=== PATIENT | male | born 1950 | race Caucasian/White ===

== ENCOUNTER → 2017-10-07 | Outpatient (CLI) | payer MEDICARE ==
[~2017-10-07] MED LIST: ALBU90OI6 INH; AMOCLA500 PO; BUDE6HFA INH; IBUP800 PO; LISI20 PO
== END | disposition home or self-care (01) ==
LOC: LAB SHORT 07:31 → PLD 07:31
DX: L82.1 Other seborrheic keratosis (principal)
CPT/HCPCS: 88305

== ENCOUNTER 2021-06-18 08:27 | Day surgery (SDC) | payer MEDICARE ==
[~2021-06-18] VITALS: Ht 182.9 cm; Wt 97.2 kg
[~2021-06-18 08:27] MED LIST changes: +Avapro300 MG PO; +HYDROCHLOROTH12.5 MG PO; +PRAVASTATIN SOD40 MG PO
[2021-06-18] MEDS ORDERED: IBUP200 PO (09:56)
--- NOTE | 2021-06-18 10:47 | NUR ---
06/18/21 1047 Kadie Cuba VERIFIED CORRECT PT, PROCEEDURE, SITE AND ALLERIGIES. PT ELECTED TO PROCEED. VERSED 2MG GIVEN IV. VS STABLE THROUGHTOUT. PT TOLERATED WELL
== END 2021-06-18 11:42 | disposition home or self-care (01) ==
LOC: ORSCSDS 08:27
PROVIDERS: Orthopaedic Surgery
PROC: 01N54ZZ Release Median Nerve, Percutaneous Endoscopic Approach (ICD-10-PCS; principal; 2021-06-18 10:30)
DX: G56.03 Carpal tunnel syndrome, bilateral upper limbs (principal); J44.9 Chronic obstructive pulmonary disease, unspecified; I10 Essential (primary) hypertension; E78.5 Hyperlipidemia, unspecified; R01.1 Cardiac murmur, unspecified; Z79.899 Other long term (current) drug therapy
CPT/HCPCS: 82947; J1885; J2250

== ENCOUNTER → 2022-01-15 | Outpatient (CLI) | payer MEDICARE ==
[~2022-01-15] MED LIST changes: +IBUP200 PO
[2022-01-15 10:37] LABS: BASOPHILS ABSOLUTE AUTO 0.09 K/mm3 (0.00-0.23); BASOPHILS PERCENT AUTO 1 % (0-2); EOSINOPHILS ABSOLUTE AUTO 0.52 K/mm3 (0.00-0.68); EOSINOPHILS PERCENT AUTO 5 % (0-6); Hematocrit 46.4 % (37.0-53.0); Hemoglobin 15.9 g/dL (13.5-17.5); IMMATURE GRAN ABSOLUTE AUTO 0.03 K/mm3 (0.00-0.10); IMMATURE GRAN PERCENT AUTO 0 % (0-1); LYMPHOCYTES ABSOLUTE AUTO 1.64 K/mm3 (0.84-5.20); LYMPHOCYTES PERCENT AUTO 16 % (21-46); MONOCYTES PERCENT AUTO 9 % (4-13); Mean Corpuscular HGB 29.4 pg (26.0-34.0); Mean Corpuscular HGB Conc 34.3 g/dL (31.5-36.5); Mean Corpuscular Volume 86 fL (80-100); Mean Platelet Volume 11.9 fL (9.1-12.4); NEUTROPHILS ABSOLUTE AUTO 6.81 K/mm3 (1.96-9.15); NEUTROPHILS PERCENT AUTO 68 % (41-73); Platelet Count 218 K/mm3 (150-400); RDW Coefficient Variation 13.8 % (11.7-14.2); RDW Standard Deviation 42.6 fL (35.1-46.3); White Blood Cell Count 9.99 K/mm3 (4.00-11.30)
[2022-01-15 11:04] LABS: Albumin, Blood 4.2 g/dL (3.4-5.0); Albumin/Globulin Ratio 1.1 (0.8-1.8); Bilirubin, Total 0.5 mg/dL (0.1-1.0); Calcium, Blood 9.2 mg/dL (8.5-10.1); Creatinine, Blood 0.96 mg/dL (0.60-1.20); Globulin, Blood 3.8 g/dL (2.2-4.0); Potassium, Blood 4.5 mmol/L (3.5-5.5)
== END ==
LOC: LAB 10:33 → LAB SHORT 10:33
PROVIDERS: Family Medicine
DX: R10.30 Lower abdominal pain, unspecified (principal)
CPT/HCPCS: 80053; 85025

== ENCOUNTER 2022-06-24 06:31 | Day surgery (SDC) | payer MEDICARE ==
[~2022-06-24] VITALS: Ht 182.9 cm; Wt 94.8 kg
[~2022-06-24 06:31] MED LIST changes: +PROAIR DIGIHAL90 MCG IH; +TRAM50 PO
--- NOTE | 2022-06-24 07:02 | NUR ---
06/24/22 0702 Kadie Cuba PT RESTING COMFORTABLY IN BED. NO QUESTIONS OR CONCERNS AT THIS TIME
--- NOTE | 2022-06-24 07:55 | NUR ---
06/24/22 0755 Estrella Peck PT ON [facility] WITH LEFT SIDE RAIL UP. RIGHT ARM ON IRONING BOARD
[2022-06-24 08:06] VITALS: BP 128/65
== END 2022-06-24 08:30 | disposition home or self-care (01) ==
LOC: ORSCSDS 06:31
PROVIDERS: Orthopaedic Surgery
PROC: 01N54ZZ Release Median Nerve, Percutaneous Endoscopic Approach (ICD-10-PCS; principal; 2022-06-24 07:30)
DX: G56.01 Carpal tunnel syndrome, right upper limb (principal); F41.9 Anxiety disorder, unspecified; J44.9 Chronic obstructive pulmonary disease, unspecified; E78.5 Hyperlipidemia, unspecified; I10 Essential (primary) hypertension; E55.9 Vitamin D deficiency, unspecified; Z87.891 Personal history of nicotine dependence; Z79.899 Other long term (current) drug therapy
CPT/HCPCS: J2250; J7120

== ENCOUNTER 2023-03-11 13:59 | Emergency (ER) | payer MEDICARE ==
[~2023-03-11] VITALS: Ht 182.9 cm; Wt 102.1 kg
[2023-03-11 14:27] VITALS: BP 142/76
[2023-03-11 15:04] LABS: BASOPHILS ABSOLUTE AUTO 0.07 K/mm3 (0.00-0.23); BASOPHILS PERCENT AUTO 0 % (0-2); EOSINOPHILS ABSOLUTE AUTO 0.36 K/mm3 (0.00-0.68); EOSINOPHILS PERCENT AUTO 2 % (0-6); Hematocrit 46.2 % (37.0-53.0); IMMATURE GRAN ABSOLUTE AUTO 0.08 K/mm3 (0.00-0.10); IMMATURE GRAN PERCENT AUTO 1 % (0-1); LYMPHOCYTES ABSOLUTE AUTO 1.87 K/mm3 (0.84-5.20); LYMPHOCYTES PERCENT AUTO 11 % (21-46); MONOCYTES ABSOLUTE AUTO 1.49 K/mm3 (0.16-1.47); MONOCYTES PERCENT AUTO 9 % (4-13); Mean Corpuscular HGB 29.3 pg (26.0-34.0); Mean Corpuscular HGB Conc 34.6 g/dL (31.5-36.5); Mean Corpuscular Volume 85 fL (80-100); Mean Platelet Volume 11.8 fL (9.1-12.4); NEUTROPHILS ABSOLUTE AUTO 13.63 K/mm3 (1.96-9.15); NEUTROPHILS PERCENT AUTO 78 % (41-73); Platelet Count 273 K/mm3 (150-400); RDW Standard Deviation 39.8 fL (35.1-46.3); Red Blood Cell Count 5.46 M/mm3 (4.30-5.90)
[2023-03-11 15:30] LABS: Bilirubin, Total 1.1 mg/dL (0.1-1.0); Bun/Creatinine Ratio 21.2 (12.0-20.0); Calcium, Blood 9.3 mg/dL (8.5-10.1); Creatinine, Blood 0.9 mg/dL (0.60-1.20); Globulin, Blood 4.2 g/dL (2.2-4.0); Potassium, Blood 3.9 mmol/L (3.5-5.5); Total Protein, Blood 8.2 g/dL (6.4-8.2)
[2023-03-11] MEDS ORDERED: Cipro500 MG PO (16:13)
[2023-03-11] MEDS ORDERED: Flagyl500 MG PO (16:13)
== END 2023-03-11 16:40 | disposition home or self-care (01) ==
LOC: ER 13:59
PROVIDERS: Physician Assistant
DX: K57.32 Diverticulitis of large intestine without perforation or abscess without bleeding (principal); I10 Essential (primary) hypertension; Z87.891 Personal history of nicotine dependence; Z79.899 Other long term (current) drug therapy; Z88.8 Allergy status to other drugs, medicaments and biological substances
CPT/HCPCS: 74177; 80053; 85025; 96374-59; 96376; 99284-25; A9270; J1885; Q9967

== ENCOUNTER 2023-07-01 10:39 | Day surgery (SDC) | payer MEDICARE ==
[~2023-07-01] VITALS: Ht 182.9 cm; Wt 94.6 kg
[~2023-07-01 10:39] MED LIST changes: +Cipro500 MG PO; +Flagyl500 MG PO; +Lactated Ringer's 1,000 ML IV SCH; +PROAIR DIGIHAL90 MCG INH
[2023-07-01] MEDS ORDERED: propofoL 20 ML IV ONE ×4 (11:21→12:16)
[2023-07-01] MEDS ORDERED: Ondansetron HCl 2 MG / ML 2ML Vial ONE (11:22)
[2023-07-01 11:28] VITALS: BP 149/82
[2023-07-01] MEDS ORDERED: TRAZ50 PO (11:32)
[2023-07-01] MEDS ORDERED: Ipratropium/Albuterol SulF 2.5-0.5MG/3 ML Amp INH ONE (11:45)
--- NOTE | 2023-07-01 11:56 | NUR ---
Ambulatory in Day Surgery.Patient states colon prep results clear. History, Chart, Medications and Allergies reviewed before start of procedure.Patient confirms NPO status and agrees with scheduled surgery. Pre-Op teaching done. Pt verbalizes understanding. Lungs clear T/O to Auscultation. Patient States Post-Procedure ride home has been arranged. PT GIVEN DUONEB PER ANESTHESIA.
--- NOTE | 2023-07-01 12:02 | NUR ---
07/01/23 [address] DR[address] ESCOBAR; SEE ANESTHESIA RECORDS.
[2023-07-01 12:37] VITALS: BP 102/65
[2023-07-01 12:53] VITALS: BP 118/73
--- NOTE | 2023-07-01 12:55 | NUR ---
Discharge instructions reviewed with patient. Patient verbalizes understanding. Copy given to patient to take home. Patient States Post-Procedure ride home has been arranged. Discharged via wheelchair to private car for ride home.
[2023-07-01] MEDS ORDERED: Phenylephrine HCl 100 MCG/ML-NS 10MLSYR (1MG/10ML) IV ONE (18:09)
== END 2023-07-01 13:00 | disposition home or self-care (01) ==
LOC: ORSCMMR 10:39
PROVIDERS: Surgery
PROC: 0DJD8ZZ Inspection of Lower Intestinal Tract, Via Natural or Artificial Opening Endoscopic (ICD-10-PCS; principal; 2023-07-01 12:00)
DX: Z12.11 Encounter for screening for malignant neoplasm of colon (principal); K57.30 Diverticulosis of large intestine without perforation or abscess without bleeding; I10 Essential (primary) hypertension; E78.5 Hyperlipidemia, unspecified; J44.9 Chronic obstructive pulmonary disease, unspecified; J45.909 Unspecified asthma, uncomplicated; F41.9 Anxiety disorder, unspecified; Z79.899 Other long term (current) drug therapy; Z87.891 Personal history of nicotine dependence
CPT/HCPCS: J2371; J2405; J2704; J7120